=== PATIENT | female | born 1960 | race African-American/Black ===

== ENCOUNTER 2022-10-28 21:41 | Inpatient (IN) | payer MEDICAID, OTHER ==
[~2022-10-28] VITALS: Ht 170.2 cm; Wt 88.0 kg
[2022-10-28] MEDS ORDERED: DILTIAZEM HCL 50 MG IV IV ONE (23:30)
[2022-10-28 23:43] LABS: ALANINE AMINOTRANSFERASE 295 U/L (12-78); ALBUMIN 3.1 g/dL (3.4-5.0); ALKALINE PHOSPHATASE 232 U/L (46-116); ASPARTATE AMINOTRANSFERASE 150 U/L (15-37); BILIRUBIN,DIRECT 1.4 mg/dL (0.0-0.2); BILIRUBIN,TOTAL 3.2 mg/dL (0.2-1.0); CALCIUM, SERUM 9.4 mg/dL (8.5-10.1); CARBON DIOXIDE 19 mmol/L (21-32); CHLORIDE 98 mmol/L (98-107); CREATININE 2.5 mg/dL (0.6-1.3); GLUCOSE 119 mg/dL (74-106); POTASSIUM 5.5 mmol/L (3.5-5.1); SODIUM SERUM 132 mmol/L (136-145); TOTAL PROTEIN, SERUM 8.2 g/dL (6.4-8.2)
[2022-10-28] MEDS ORDERED: DILTIAZEM HCL 25 MG IV ONE (23:45)
[2022-10-28 23:48] LABS: BASOPHILS # (AUTO) 0.1 K/uL (0.0-0.2); BASOPHILS % (AUTO) 0.5 % (0.0-2.0); EOSINOPHILS % (AUTO) 0.2 % (0.0-6.0); HEMATOCRIT 51 % (33-45); HEMOGLOBIN 16.2 g/dL (11.5-14.8); LYMPHOCYTES # (AUTO) 0.8 K/uL (0.8-4.8); LYMPHOCYTES % (AUTO) 6.9 % (20.0-44.0); MEAN CORPUSCULAR HGB CONC 32 g/dl (31.0-36.0); MEAN CORPUSCULAR VOLUME 84 fL (82-100); MONOCYTES # (AUTO) 0.8 K/uL (0.1-1.30); MONOCYTES % (AUTO) 6.6 % (2.0-12.0); NEUTROPHILS # (AUTO) 10.6 K/uL (1.8-8.9); NEUTROPHILS % (AUTO) 85.8 % (43.0-81.0); PLATELET COUNT (AUTO) 252 K/uL (150-450); WHITE BLOOD COUNT (AUTO) 12.3 K/uL (4.3-11.0)
[2022-10-28 23:56] LABS: UREA NITROGEN, BLOOD 100 mg/dL (7-18)
[2022-10-29] MEDS ORDERED: FUROSEMIDE 40 MG/4 ML VIAL ONE (00:26)
[2022-10-29] MEDS ORDERED: ASPIRIN 325 MG TABLET ONE (00:27)
[2022-10-29] MEDS ORDERED: ALBUTEROL FS 2.5 MG/0.5 ML VIAL.NEB NEB ONE (00:30)
[2022-10-29] MEDS ORDERED: ASPIRIN 325 MG TABLET PO ONE (00:30)
[2022-10-29] MEDS ORDERED: FUROSEMIDE 40 MG/4 ML VIAL IV ONE (00:30)
[2022-10-29] MEDS ORDERED: ALBUTEROL FS 2.5 MG/0.5 ML VIAL.NEB ONE (00:37)
[2022-10-29 01:58] LABS: BILIRUBIN,URINE 1+ (NEGATIVE); COLOR,URINE DARK YELLOW (YELLOW); LEUKOCYTE ESTERASE ,URINE NEGATIVE (NEGATIVE); NITRITE, URINE NEGATIVE (NEGATIVE); PROTEIN,URINE 2+ mg/dl (NEGATIVE); UGLUCOSE NEGATIVE (NEGATIVE); UROBILINOGEN,URINE 0.2 EU/dL (0.2)
[2022-10-29 02:01] LABS: BACTERIA,URINE Few /HPF (None Seen); RBC,URINE 0-2 /HPF (0-2); SQUAMOUS EPITHELIAL CELL,UR Few /HPF (None Seen); WBC,URINE 0-2 /HPF (0-3)
[2022-10-29] MEDS ORDERED: MORPHINE SULFATE INJ 2 MG/ML DISP.SYRIN IV PRN (02:30)
[2022-10-29] MEDS ORDERED: IV NS 0.9% 1,000 ML IV SCH ×2 (02:30→09:30)
[2022-10-29] MEDS ORDERED: ACETAMINOPHEN 325 MG TABLET PO PRN (02:30)
[2022-10-29] MEDS ORDERED: ONDANSETRON HCL/PF 4 MG/2 ML VIAL IVP PRN (02:30)
[2022-10-29] MEDS ORDERED: DILTIAZEM HCL 50 MG IV ONE ×2 (03:07→03:08)
[2022-10-29] MEDS ORDERED: DILTIAZEM HCL 25 MG IV ONE (03:08)
[2022-10-29 03:23] LABS: THYROID STIMULATING HORMONE 4.073 uIU/mL (0.358-3.74)
[2022-10-29] MEDS: DILTIAZEM HCL IV 125 MG in IV NS 0.9% 100 ML IV PRN ×2 (03:32→04:19)
[2022-10-29 06:00] VITALS: BP 154/97
[2022-10-29 08:00] VITALS: BP 128/106
[2022-10-29] MEDS: ENOXAPARIN SODIUM 80 MG/0.8 ML DISP.SYRIN SQ SCH (08:37)
[2022-10-29] MEDS ORDERED: SODIUM POLYSTYRENE SULF. PWD 15 GM UDC PO ONE (10:00)
[2022-10-29] MEDS ORDERED: BUMETANIDE INJ 8 MG in IV NS 0.9% 48 ML IV ONE (11:00)
[2022-10-29] MEDS: DILTIAZEM HCL CD 240 MG PO SCH (11:01)
[2022-10-29] MEDS: DIGOXIN INJ 0.5 MG/2 ML AMPUL IV SCH ×3 (11:15→23:42)
[2022-10-29 12:00] VITALS: BP 152/113
[2022-10-29] MEDS ORDERED: DILTIAZEM HCL 30 MG TABLET PO ONE (15:30)
[2022-10-29 16:00] VITALS: BP 142/101
[2022-10-29] MEDS ORDERED: METOPROLOL TARTRATE 50 MG TABLET PO ONE (16:00)
[2022-10-29] MEDS ORDERED: METOPROLOL TARTRATE 50 MG TABLET PO SCH (17:00)
[2022-10-29 20:00] VITALS: BP 138/107
[2022-10-30] VITALS: BP 160/108
[2022-10-30 04:00] VITALS: BP 129/94
[2022-10-30 07:41] LABS: BASOPHILS % (AUTO) 0.1 % (0.0-2.0); EOSINOPHILS % (AUTO) 0.1 % (0.0-6.0); HEMATOCRIT 54 % (33-45); HEMOGLOBIN 16.8 g/dL (11.5-14.8); LYMPHOCYTES # (AUTO) 0.5 K/uL (0.8-4.8); LYMPHOCYTES % (AUTO) 3.8 % (20.0-44.0); MEAN CORPUSCULAR HGB CONC 31 g/dl (31.0-36.0); MEAN CORPUSCULAR VOLUME 84 fL (82-100); MONOCYTES # (AUTO) 0.7 K/uL (0.1-1.30); MONOCYTES % (AUTO) 4.8 % (2.0-12.0); NEUTROPHILS # (AUTO) 12.7 K/uL (1.8-8.9); NEUTROPHILS % (AUTO) 91.2 % (43.0-81.0); PLATELET COUNT (AUTO) 229 K/uL (150-450); RED BLOOD CELL COUNT(AUTO) 6.43 MIL/uL (4.0-5.2)
[2022-10-30 08:00] VITALS: BP 158/96
[2022-10-30] MEDS: DILTIAZEM HCL CD 240 MG PO SCH (08:17)
[2022-10-30] MEDS: METOPROLOL TARTRATE 50 MG TABLET PO SCH ×2 (08:17→16:21)
[2022-10-30] MEDS: ENOXAPARIN SODIUM 80 MG/0.8 ML DISP.SYRIN SQ SCH (08:18)
[2022-10-30 10:01] LABS: BILIRUBIN,DIRECT 1.5 mg/dL (0.0-0.2); TOTAL PROTEIN, SERUM 7.9 g/dL (6.4-8.2)
[2022-10-30] MEDS ORDERED: ATOR10TA PO (10:11)
[2022-10-30] MEDS ORDERED: CARV25TA2 PO (10:11)
[2022-10-30] MEDS ORDERED: ASPI-1169 PO (10:11)
[2022-10-30] MEDS ORDERED: SPIR50TA5 PO (10:11)
[2022-10-30] MEDS ORDERED: CLON0.1T PO (10:11)
[2022-10-30 10:30] LABS: ALBUMIN 2.7 g/dL (3.4-5.0)
[2022-10-30 10:44] LABS: BILIRUBIN,TOTAL 3.4 mg/dL (0.2-1.0)
[2022-10-30 10:46] LABS: POTASSIUM 4.4 mmol/L (3.5-5.1)
[2022-10-30 10:48] LABS: CALCIUM, SERUM 8.8 mg/dL (8.5-10.1); CREATININE 2.2 mg/dL (0.6-1.3); PHOSPHORUS 5.8 mg/dL (2.5-4.9)
[2022-10-30 10:49] LABS: ALBUMIN 2.7 g/dL (3.4-5.0); BILIRUBIN,TOTAL 3.4 mg/dL (0.2-1.0); TOTAL PROTEIN, SERUM 7.9 g/dL (6.4-8.2)
[2022-10-30 11:16] LABS: MAGNESIUM 2.5 mg/dL (1.8-2.4)
[2022-10-30 12:00] VITALS: BP 141/82
[2022-10-30 16:00] VITALS: BP 130/74
[2022-10-30 20:00] VITALS: BP 145/86
[2022-10-31] VITALS: BP 136/64
[2022-10-31 04:00] VITALS: BP 134/95
[2022-10-31 07:06] LABS: CALCIUM, SERUM 8.3 mg/dL (8.5-10.1); CREATININE 2.5 mg/dL (0.6-1.3); MAGNESIUM 2.4 mg/dL (1.8-2.4); PHOSPHORUS 5.6 mg/dL (2.5-4.9); POTASSIUM 3.8 mmol/L (3.5-5.1)
[2022-10-31 07:36] LABS: EOSINOPHILS % (AUTO) 0.3 % (0.0-6.0); HEMATOCRIT 53 % (33-45); HEMOGLOBIN 16.3 g/dL (11.5-14.8); LYMPHOCYTES # (AUTO) 0.7 K/uL (0.8-4.8); LYMPHOCYTES % (AUTO) 5.8 % (20.0-44.0); MEAN CORPUSCULAR HGB CONC 31 g/dl (31.0-36.0); MEAN CORPUSCULAR VOLUME 84 fL (82-100); MONOCYTES % (AUTO) 8.2 % (2.0-12.0); NEUTROPHILS # (AUTO) 10.1 K/uL (1.8-8.9); NEUTROPHILS % (AUTO) 85.7 % (43.0-81.0); PLATELET COUNT (AUTO) 292 K/uL (150-450); RED BLOOD CELL COUNT(AUTO) 6.26 MIL/uL (4.0-5.2); WHITE BLOOD COUNT (AUTO) 11.8 K/uL (4.3-11.0)
[2022-10-31 08:00] VITALS: BP 137/83
[2022-10-31] MEDS: DILTIAZEM HCL CD 240 MG PO SCH (09:12)
[2022-10-31] MEDS: METOPROLOL TARTRATE 50 MG TABLET PO SCH ×2 (09:13→16:37)
[2022-10-31] MEDS ORDERED: BUMETANIDE INJ 8 MG in IV NS 0.9% 48 ML IV ONE (09:30)
[2022-10-31] MEDS: POTASSIUM CHLORIDE 20 MEQ TAB.PRT.SR PO SCH ×2 (10:06→11:00)
[2022-10-31] MEDS: HEPARIN SODIUM, PORCINE 5000 UNITS/1 ML VIAL SQ SCH ×2 (10:07→20:33)
[2022-10-31] MEDS ORDERED: Z GUARD REMEDY 4 OZ OINT TP PRN (11:00)
[2022-10-31] MEDS: Z GUARD REMEDY 4 OZ OINT TP SCH (11:36)
[2022-10-31 12:00] VITALS: BP 138/96
[2022-10-31 16:00] VITALS: BP 127/78
[2022-10-31 20:00] VITALS: BP 122/81
[2022-11-01] VITALS: BP 128/93
[2022-11-01 04:00] VITALS: BP 129/82
[2022-11-01 06:02] LABS: BASOPHILS % (AUTO) 0.2 % (0.0-2.0); EOSINOPHILS % (AUTO) 0.4 % (0.0-6.0); HEMATOCRIT 52 % (33-45); HEMOGLOBIN 16.5 g/dL (11.5-14.8); LYMPHOCYTES # (AUTO) 0.6 K/uL (0.8-4.8); LYMPHOCYTES % (AUTO) 5.3 % (20.0-44.0); MEAN CORPUSCULAR HGB CONC 32 g/dl (31.0-36.0); MEAN CORPUSCULAR VOLUME 84 fL (82-100); MONOCYTES # (AUTO) 1.1 K/uL (0.1-1.30); MONOCYTES % (AUTO) 10.3 % (2.0-12.0); NEUTROPHILS % (AUTO) 83.8 % (43.0-81.0); PLATELET COUNT (AUTO) 243 K/uL (150-450); RED BLOOD CELL COUNT(AUTO) 6.19 MIL/uL (4.0-5.2); WHITE BLOOD COUNT (AUTO) 10.8 K/uL (4.3-11.0)
[2022-11-01 06:20] LABS: ALBUMIN 2.5 g/dL (3.4-5.0); BILIRUBIN,TOTAL 2.2 mg/dL (0.2-1.0); CALCIUM, SERUM 8.5 mg/dL (8.5-10.1); CREATININE 2.1 mg/dL (0.6-1.3); PHOSPHORUS 3.5 mg/dL (2.5-4.9); POTASSIUM 3.6 mmol/L (3.5-5.1); TOTAL PROTEIN, SERUM 7.5 g/dL (6.4-8.2)
[2022-11-01 08:00] VITALS: BP 145/85
[2022-11-01] MEDS: DILTIAZEM HCL CD 240 MG PO SCH ×2 (08:30→09:00)
[2022-11-01] MEDS: METOPROLOL TARTRATE 50 MG TABLET PO SCH ×2 (08:30→16:52)
[2022-11-01] MEDS: HEPARIN SODIUM, PORCINE 5000 UNITS/1 ML VIAL SQ SCH ×2 (08:31→21:32)
[2022-11-01] MEDS: Z GUARD REMEDY 4 OZ OINT TP SCH (08:32)
[2022-11-01 12:00] VITALS: BP 136/82
[2022-11-01 16:00] VITALS: BP 134/91
[2022-11-01 20:00] VITALS: BP 112/58
[2022-11-02] VITALS: BP 112/58
[2022-11-02 04:00] VITALS: BP 130/98
[2022-11-02 07:42] LABS: BASOPHILS % (AUTO) 0.1 % (0.0-2.0); EOSINOPHILS % (AUTO) 0.6 % (0.0-6.0); HEMATOCRIT 55 % (33-45); LYMPHOCYTES # (AUTO) 1.1 K/uL (0.8-4.8); LYMPHOCYTES % (AUTO) 12.4 % (20.0-44.0); MEAN CORPUSCULAR HGB CONC 31 g/dl (31.0-36.0); MEAN CORPUSCULAR VOLUME 84 fL (82-100); MONOCYTES # (AUTO) 1.2 K/uL (0.1-1.30); MONOCYTES % (AUTO) 13.1 % (2.0-12.0); NEUTROPHILS # (AUTO) 6.5 K/uL (1.8-8.9); NEUTROPHILS % (AUTO) 73.8 % (43.0-81.0); PLATELET COUNT (AUTO) 192 K/uL (150-450); RED BLOOD CELL COUNT(AUTO) 6.54 MIL/uL (4.0-5.2); WHITE BLOOD COUNT (AUTO) 8.8 K/uL (4.3-11.0)
[2022-11-02 07:52] LABS: CALCIUM, SERUM 8.5 mg/dL (8.5-10.1); CREATININE 2.3 mg/dL (0.6-1.3); MAGNESIUM 2.1 mg/dL (1.8-2.4); POTASSIUM 3.8 mmol/L (3.5-5.1)
[2022-11-02 08:00] VITALS: BP 128/66
[2022-11-02 08:09] LABS: PHOSPHORUS 3.5 mg/dL (2.5-4.9)
[2022-11-02] MEDS: METOPROLOL TARTRATE 50 MG TABLET PO SCH ×2 (08:21→17:23)
[2022-11-02] MEDS: ASPIRIN 81 MG TAB.CHEW PO SCH (08:21)
[2022-11-02] MEDS: DILTIAZEM HCL CD 240 MG PO SCH (08:22)
[2022-11-02] MEDS: HEPARIN SODIUM, PORCINE 5000 UNITS/1 ML VIAL SQ SCH ×2 (08:23→21:36)
[2022-11-02] MEDS: Z GUARD REMEDY 4 OZ OINT TP SCH (08:24)
[2022-11-02] MEDS: ATORVASTATIN 10 MG TABLET PO SCH ×2 (08:28→17:23)
[2022-11-02 12:00] VITALS: BP 127/61
[2022-11-02 16:00] VITALS: BP 116/93
[2022-11-02 20:00] VITALS: BP 107/67
[2022-11-03] VITALS: BP 121/86
[2022-11-03 04:00] VITALS: BP 124/86
[2022-11-03 07:21] LABS: CALCIUM, SERUM 8.6 mg/dL (8.5-10.1); CREATININE 2.8 mg/dL (0.6-1.3); POTASSIUM 3.5 mmol/L (3.5-5.1)
[2022-11-03 08:00] VITALS: BP 117/81
[2022-11-03] MEDS: ASPIRIN 81 MG TAB.CHEW PO SCH (08:25)
[2022-11-03] MEDS: METOPROLOL TARTRATE 50 MG TABLET PO SCH ×2 (08:27→17:20)
[2022-11-03] MEDS: HEPARIN SODIUM, PORCINE 5000 UNITS/1 ML VIAL SQ SCH ×2 (08:31→21:26)
[2022-11-03] MEDS: DILTIAZEM HCL CD 120 MG PO SCH (08:32)
[2022-11-03] MEDS: Z GUARD REMEDY 4 OZ OINT TP SCH (08:32)
[2022-11-03 12:00] VITALS: BP 123/93
[2022-11-03] MEDS: ATORVASTATIN 10 MG TABLET PO SCH (17:20)
[2022-11-03 20:00] VITALS: BP 139/77
[2022-11-04] VITALS: BP 143/87
[2022-11-04 04:00] VITALS: BP 131/93
[2022-11-04 07:07] LABS: CREATININE 2.3 mg/dL (0.6-1.3); POTASSIUM 3.4 mmol/L (3.5-5.1)
[2022-11-04 08:00] VITALS: BP 140/89
[2022-11-04] MEDS: ASPIRIN 81 MG TAB.CHEW PO SCH (08:30)
[2022-11-04] MEDS: METOPROLOL TARTRATE 50 MG TABLET PO SCH ×2 (08:31→16:09)
[2022-11-04] MEDS: DILTIAZEM HCL CD 120 MG PO SCH (08:31)
[2022-11-04] MEDS: Z GUARD REMEDY 4 OZ OINT TP SCH (08:32)
[2022-11-04] MEDS: HEPARIN SODIUM, PORCINE 5000 UNITS/1 ML VIAL SQ SCH ×2 (08:32→21:27)
[2022-11-04] MEDS ORDERED: POTASSIUM CHLORIDE 10 MEQ TABLET.SA PO ONE (11:30)
[2022-11-04] MEDS ORDERED: POTASSIUM CHLORIDE 20 MEQ TAB.PRT.SR PO ONE (11:30)
[2022-11-04 12:00] VITALS: BP 139/70
[2022-11-04 16:00] VITALS: BP 124/68
[2022-11-04] MEDS: ATORVASTATIN 10 MG TABLET PO SCH (17:02)
[2022-11-04 20:00] VITALS: BP 119/71
[2022-11-05] VITALS: BP 143/93
[2022-11-05 04:00] VITALS: BP 140/95
[2022-11-05 07:24] LABS: CALCIUM, SERUM 9.1 mg/dL (8.5-10.1); CREATININE 2.1 mg/dL (0.6-1.3); POTASSIUM 3.8 mmol/L (3.5-5.1)
[2022-11-05 08:00] VITALS: BP 142/95
[2022-11-05] MEDS: ASPIRIN 81 MG TAB.CHEW PO SCH (08:38)
[2022-11-05] MEDS: Z GUARD REMEDY 4 OZ OINT TP SCH (08:40)
[2022-11-05] MEDS: HEPARIN SODIUM, PORCINE 5000 UNITS/1 ML VIAL SQ SCH ×2 (08:40→21:26)
[2022-11-05 12:00] VITALS: BP 123/72
[2022-11-05] MEDS: METOPROLOL TARTRATE 50 MG TABLET PO SCH ×2 (12:51→17:24)
[2022-11-05] MEDS: DILTIAZEM HCL CD 120 MG PO SCH (12:51)
[2022-11-05 16:00] VITALS: BP 137/63
[2022-11-05] MEDS: ATORVASTATIN 10 MG TABLET PO SCH (17:24)
[2022-11-05 20:00] VITALS: BP 130/79
[2022-11-06] VITALS: BP 150/77
[2022-11-06 04:00] VITALS: BP 133/72
[2022-11-06 07:45] LABS: CALCIUM, SERUM 9.6 mg/dL (8.5-10.1)
[2022-11-06 08:00] VITALS: BP 122/89
[2022-11-06] MEDS: METOPROLOL TARTRATE 50 MG TABLET PO SCH ×2 (08:11→17:37)
[2022-11-06] MEDS: DILTIAZEM HCL CD 120 MG PO SCH (08:11)
[2022-11-06] MEDS: Z GUARD REMEDY 4 OZ OINT TP SCH (08:12)
[2022-11-06] MEDS: ASPIRIN 81 MG TAB.CHEW PO SCH (08:16)
[2022-11-06] MEDS: HEPARIN SODIUM, PORCINE 5000 UNITS/1 ML VIAL SQ SCH ×2 (08:19→20:07)
[2022-11-06 12:00] VITALS: BP 135/78
[2022-11-06 16:00] VITALS: BP 112/63
[2022-11-06] MEDS: ATORVASTATIN 10 MG TABLET PO SCH (17:37)
[2022-11-06 20:00] VITALS: BP 153/81
[2022-11-07] VITALS: BP 133/90
[2022-11-07 04:00] VITALS: BP 136/88
[2022-11-07 04:58] LABS: CREATININE 2.7 mg/dL (0.6-1.3); POTASSIUM 4.2 mmol/L (3.5-5.1)
[2022-11-07 05:52] LABS: BASOPHILS # (AUTO) 0.2 K/uL (0.0-0.2); BASOPHILS % (AUTO) 1.7 % (0.0-2.0); EOSINOPHILS % (AUTO) 1.3 % (0.0-6.0); HEMATOCRIT 49 % (33-45); HEMOGLOBIN 15.5 g/dL (11.5-14.8); LYMPHOCYTES # (AUTO) 1.4 K/uL (0.8-4.8); LYMPHOCYTES % (AUTO) 13.3 % (20.0-44.0); MEAN CORPUSCULAR HGB CONC 32 g/dl (31.0-36.0); MEAN CORPUSCULAR VOLUME 83 fL (82-100); MONOCYTES # (AUTO) 1.2 K/uL (0.1-1.30); MONOCYTES % (AUTO) 11.3 % (2.0-12.0); NEUTROPHILS # (AUTO) 7.4 K/uL (1.8-8.9); NEUTROPHILS % (AUTO) 72.4 % (43.0-81.0); PLATELET COUNT (AUTO) 168 K/uL (150-450); RED BLOOD CELL COUNT(AUTO) 5.91 MIL/uL (4.0-5.2); WHITE BLOOD COUNT (AUTO) 10.2 K/uL (4.3-11.0)
[2022-11-07] MEDS ORDERED: LIDOCAINE HCL/MPF 1% 30 ML VIAL IJ ONE (06:41)
[2022-11-07] MEDS ORDERED: IOHEXOL 240MG/ML 0 ML IV ONE (06:41)
[2022-11-07] MEDS ORDERED: HEPARIN SODIUM, PORCINE 1,000 UNIT/ML VIAL ONE (06:41)
[2022-11-07] MEDS: HEPARIN SODIUM, PORCINE 5000 UNITS/1 ML VIAL SQ SCH (09:00)
[2022-11-07] MEDS: ASPIRIN 81 MG TAB.CHEW PO SCH (09:00)
[2022-11-07] MEDS: Z GUARD REMEDY 4 OZ OINT TP SCH (09:03)
[2022-11-07 09:04] VITALS: BP 140/91
[2022-11-07] MEDS: DILTIAZEM HCL CD 120 MG PO SCH (09:04)
[2022-11-07] MEDS: METOPROLOL TARTRATE 50 MG TABLET PO SCH ×2 (09:04→17:00)
[2022-11-07 12:00] VITALS: BP 127/71
[2022-11-07] MEDS: ANCEF 1 GM/50 ML D5W IV SCH ×4 (15:05→22:41)
[2022-11-07 16:00] VITALS: BP 105/60
[2022-11-07] MEDS: ATORVASTATIN 10 MG TABLET PO SCH (17:51)
[2022-11-07 20:00] VITALS: BP 119/74
[2022-11-08] VITALS: BP 118/73
[2022-11-08 04:00] VITALS: BP 132/82
[2022-11-08 08:00] VITALS: BP 129/86
[2022-11-08 08:14] LABS: CALCIUM, SERUM 8.9 mg/dL (8.5-10.1); CREATININE 1.9 mg/dL (0.6-1.3); POTASSIUM 4.1 mmol/L (3.5-5.1)
[2022-11-08] MEDS: DILTIAZEM HCL CD 120 MG PO SCH (09:02)
[2022-11-08] MEDS: Z GUARD REMEDY 4 OZ OINT TP SCH (09:03)
[2022-11-08] MEDS: METOPROLOL TARTRATE 50 MG TABLET PO SCH (09:03)
[2022-11-08] MEDS: ASPIRIN 81 MG TAB.CHEW PO SCH (09:03)
[2022-11-08 12:00] VITALS: BP 110/76
[2022-11-08] MEDS ORDERED: APIX5TAB PO (12:11)
[2022-11-08] MEDS ORDERED: DILT120C87 PO (12:11)
[2022-11-08] MEDS ORDERED: METO50TA16 PO (12:11)
[2022-11-08] MEDS ORDERED: METOPROLOL TARTRATE 50 MG TABLET PO SCH (17:00)
[2022-11-08 20:18] LABS: BILIRUBIN,URINE 1+ (NEGATIVE); COLOR,URINE DARK YELLOW (YELLOW); LEUKOCYTE ESTERASE ,URINE TRACE (NEGATIVE); NITRITE, URINE NEGATIVE (NEGATIVE); PROTEIN,URINE 3+ mg/dl (NEGATIVE); UGLUCOSE NEGATIVE (NEGATIVE)
[2022-11-08 20:56] LABS: BACTERIA,URINE Many /HPF (None Seen); RBC,URINE 81-100 /HPF (0-2)
[2022-11-08 20:57] LABS: SQUAMOUS EPITHELIAL CELL,UR Few /HPF (None Seen)
== END 2022-11-08 16:07 | disposition home or self-care (01) | DRG 194 ==
LOC: ER 21:51 → EDBD 21:51 → TELE1 10-29 03:23 → TELE-TD 10-29 05:33 → TELE1 11-02 08:21
PROVIDERS: ADMIT Student in an Organized Health Care Education/Training Program; ATTEND Internal Medicine
PROC: 05H933Z Insertion of Infusion Device into Right Brachial Vein, Percutaneous Approach (ICD-10-PCS; 2022-10-29)
PROC: 5A1D70Z Performance of Urinary Filtration, Intermittent, Less than 6 Hours Per Day (ICD-10-PCS; principal; 2022-10-31)
PROC: 05HM33Z Insertion of Infusion Device into Right Internal Jugular Vein, Percutaneous Approach (ICD-10-PCS; 2022-10-31)
PROC: B543ZZA Ultrasonography of Right Jugular Veins, Guidance (ICD-10-PCS; 2022-10-31)
PROC: 0JH63XZ Insertion of Tunneled Vascular Access Device into Chest Subcutaneous Tissue and Fascia, Percutaneous Approach (ICD-10-PCS; 2022-11-07)
PROC: 05HM33Z Insertion of Infusion Device into Right Internal Jugular Vein, Percutaneous Approach (ICD-10-PCS; 2022-11-07)
PROC: B513YZA Fluoroscopy of Right Jugular Veins using Other Contrast, Guidance (ICD-10-PCS; 2022-11-07)
DX: I13.2 Hypertensive heart and chronic kidney disease with heart failure and with stage 5 chronic kidney disease, or end stage renal disease (principal); N17.0 Acute kidney failure with tubular necrosis; I21.A1 Myocardial infarction type 2; E87.20 Acidosis, unspecified; D68.59 Other primary thrombophilia; E44.1 Mild protein-calorie malnutrition; E87.1 Hypo-osmolality and hyponatremia; N18.6 End stage renal disease; I42.9 Cardiomyopathy, unspecified; I50.43 Acute on chronic combined systolic (congestive) and diastolic (congestive) heart failure; I48.91 Unspecified atrial fibrillation; E86.1 Hypovolemia; E87.5 Hyperkalemia; Z20.822 Contact with and (suspected) exposure to COVID-19; E78.5 Hyperlipidemia, unspecified; R74.01 Elevation of levels of liver transaminase levels; D72.829 Elevated white blood cell count, unspecified; D75.1 Secondary polycythemia; G47.33 Obstructive sleep apnea (adult) (pediatric); E80.6 Other disorders of bilirubin metabolism; K76.1 Chronic passive congestion of liver; Z68.30 Body mass index [BMI] 30.0-30.9, adult; E66.9 Obesity, unspecified; J90 Pleural effusion, not elsewhere classified; Z79.01 Long term (current) use of anticoagulants; Z79.899 Other long term (current) drug therapy
CPT/HCPCS: 36410; 36415; 70450-TC; 71045-TC; 80048-TC; 80053-TC; 80076-TC; 81001; 82962-TC; 83605-TC; 83735-TC; 83880; 84100-TC; 84439-TC; 84443-TC; 84484-TC; 85025-TC; 85610-TC; 85730-TC; 86704; 86705; 86706; 86803; 87040-TC; 87086-TC; 87340; 90935-TC; 93307-TC; 97112-TC; 97116-TC; 97530-TC; C1750; C1757; C1769; C1894; C9803; G0378; J0690; J1160; J1644; J1650; J1940; J2270; J2704; J3490; J7030; J7050; J7060; Q9966